=== PATIENT | female | born 1955 | race Hispanic/Latino ===

== ENCOUNTER 2025-01-09 10:31 | Outpatient (CLI) | payer OTHER | END 2025-01-09 10:32 | disposition home or self-care (01) | LOC: CSHMAMMO 10:31 | PROVIDERS: ATTEND Specialist | DX: N63.15 Unspecified lump in the right breast, overlapping quadrants (principal); Z98.890 Other specified postprocedural states | CPT/HCPCS: 77066; G0279 ==